=== PATIENT | female | born 1940 | race Caucasian/White ===

== ENCOUNTER 2019-09-12 09:54 | Emergency (ER) | payer MEDICARE, OTHER, SELFPAY ==
--- NOTE | ~2019-09-12 | XR_ITS ---
EXAMINATION: XR hand LT min 3V EXAM DATE: 09/12/2019 11:22 INDICATION: Swollen left hand. TECHNIQUE: Left hand frontal, lateral and oblique projections obtained and reviewed. Correlation is m juan c to left wrist exam 07/01/2010. FINDINGS: Left metacarpal bones are unremarkable. There is moderate polyarticular distal interphalan geal, advanced triscaphe primary osteoarthritis. There are no bony erosions identified. There are no acute fractures or dislocations identified. There is no subcutaneous gas. There are no radiopaque foreign bodies. IMPRESSION: 1. XR hand LT min 3V exam without acute osseous findings. 2. Soft tissue swelling. 3. Osteoarthritis. Reviewed, dictated and finalized at location A.
[2019-09-12 10:02] VITALS: BP 171/86; PULSE 120; RESP 16; TEMP 37.1; O2SAT 98
--- NOTE | 2019-09-12 11:15 | ED.WOUNDLAC ---
HPI - Wound/Laceration General Chief Complaint: Wound/Laceration <Karla Rodriguez PA-C - Last Filed: 09/12/19 13:00> Stated Complaint: hand swelling <DENA Zaragoza Last Filed: 09/12/19 13:00> Time Seen by Provider: 09/12/19 11:00 <DENA Zaragoza Last Filed: 09/12/19 13:00> Source: patient <DENA Zaragoza Last Filed: 09/12/19 13:00> Mode of arrival: ambulatory <DENA Zaragoza Last Filed: 09/12/19 13:00> Limitations: no limitations <DENA Zaragoza Last Filed: 09/12/19 13:00> History of Present Illness HPI narrative: This is a 78 year old female that presents the ER for left hand swelling x2 days. Reports Thursday night they were sitting out on the porch and she started to note some itching to her left hand. Reports on Thursday the hand started to become swollen and red. Reports the pain is continued to itch and is painful. She took Benadryl twice yesterday without relief. Denies fever, drainage, recent travel or surgery, or history of blood clots. <DENA Zaragoza Last Filed: 09/12/19 13:00> Related Data Home Medications: Home Medications Medication Instructions Recorded Confirmed aspirin [Adult Low Dose Aspirin] 09/12/19 atorvastatin 09/12/19 calcium carbonate [Calcium 600] 09/12/19 09/12/19 coQ10 (ubiquinol) PO 09/12/19 ergocalciferol (vitamin D2) 09/12/19 fluticasone propionate INTRANASAL 09/12/19 loratadine mg 09/12/19 meloxicam 09/12/19 [id number]-sud-GM-lycopen-lutein tablet PO 09/12/19 [Complete Senior] telmisartan-hydrochlorothiazid tablet 09/12/19 <DENA Zaragoza Last Filed: 09/12/19 13:00> Allergies/Adverse Reactions: Allergies Allergy/AdvReac Type Severity Reaction Status Date / Time No Known Drug Allergies Allergy Verified 09/12/19 11:15 <Karla Rodriguez PA-C - Last Filed: 09/12/19 13:00> Review of Systems Review of Systems: Narrative: CONSTITUTIONAL: Denies fever SKIN: Reports erythema and edema MUSCULOSKELETAL: Reports myalgia. <Karla Rodriguez PA-C - Last Filed: 09/12/19 13:00> All systems reviewed & are unremarkable except as noted in HPI and below <Karla Rodriguez PA-C - Last Filed: 09/12/19 13:00> PMFSH Past Medical History Medical History: Medical History (Updated 09/12/19 @ 12:51 by Karla Rodriguez PA-C) History of hyperlipidemia History of hypertension <Karal Rodriguez PA-C - Last Filed: 09/12/19 13:00> Exam Narrative: Exam Narrative: GENERAL: Well-appearing, well-nourished, and in no acute distress. HEAD: Normocephalic, atraumatic. EYES: EOMI. CHEST: Clear to auscultation. No respiratory distress. No wheezes rales or rhonchi HEART: Regular rate and rhythm. No murmur heard. Normal peripheral pulses. EXTREMITIES: Normal range of motion. Moderate edema and erythema to the left hand extending into the wrist. Normal range of motion. Normal sensation SKIN: Warm, dry, no rash. NEURO: No focal deficits. Alert and oriented x3. PSYCH: Normal mood and affect <Karla Rodriguez PA-C - Last Filed: 09/12/19 13:00> Course Consultations Consultation #1: Spoke with Dr. Katz on-call for her primary who agrees with work-up and plan. Patient is to follow-up in clinic. <Karla Rodriguez PA-C - Last Filed: 09/12/19 13:00> Date: 09/12/19 <DENA Zaragoza Last Filed: 09/12/19 13:00> Time: 12:48 <Karla Rodriguez PA-C - Last Filed: 09/12/19 13:00> Vital Signs Vital signs: Vital Signs Temperature 98.8 F 09/12/19 10:02 Pulse Rate 120 H 09/12/19 10:02 Respiratory Rate 16 09/12/19 10:02 Blood Pressure 171/86 H 09/12/19 10:02 Pulse Oximetry 98 09/12/19 10:02 Temperature 97.9 F 09/12/19 13:06 Pulse Rate 90 09/12/19 13:06 Respiratory Rate 16 09/12/19 10:02 Blood Pressure 146/81 H 09/12/19 13:06 Pulse Oximetry 98 09/12/19 13:06 <Karla Rodriguez PA-C - Last Filed: 09/12/19 13:00
[2019-09-12] MEDS: FAMOTIDINE 20 MG TABLET PO (11:24)
[2019-09-12] MEDS: methylPREDNISolone ACETATE 40 MG/ML VIAL IM (11:24)
[2019-09-12 11:35] LABS: Basophils Percent Auto 0.2 % (0.2-1.2); Eosinophils Absolute Auto 0.3 K/mm3 (0-0.3); Hematocrit 36.9 % (37.0-47.0); Hemoglobin 12.1 g/dL (12.0-15.0); Immature Granulocyte Absolute 0.01 K/mm3 (0.00-0.031); Immature Granulocyte Percent A 0.1 % (0-0.5); Lymphocytes Absolute Auto 0.95 K/mm3 (0.9-3.2); Lymphocytes Percent Auto 11.5 % (18.3-44.2); Mean Corpuscular HGB Conc 32.8 g/dl (32-36); Mean Corpuscular Hemoglobin 28.9 pg (26-34); Mean Corpuscular Volume 88.3 fl (80-100); Mean Platelet Volume 10.3 fl (7.4-10.4); Monocytes Absolute Auto 0.7 K/mm3 (0.1-0.6); Monocytes Percent Auto 8.3 % (2.6-8.5); Neutrophils Absolute Auto 6.4 K/mm3 (1.3-6.7); Neutrophils Percent Auto 76.9 % (45.5-73.1); Platelet Count Result 307 k/mm3 (150-375); Red Blood Count 4.18 M/mm3 (4.2-5.4); Red Cell Distribution Width 14.1 % (11.5-14.5); White Blood Count 8.3 K/mm3 (4.5-10.0)
[2019-09-12 11:46] LABS: Partial Thromboplastin Time 27.3 SECONDS (22.3-36.8); Prothrombin Time 12.6 Seconds (11.1-14.7)
[2019-09-12 11:49] LABS: D Dimer 0.52 ug/mL (<0.48)
[2019-09-12 11:50] LABS: Blood Urea Nitrogen 15 mg/dL (7-17); CRP < 0.5 mg/dL (<1.0); Calcium 9.3 mg/dL (8.4-10.2); Carbon Dioxide 27 mmol/L (22-30); Chloride 99 mmol/L (98-107); Estimated Glomerular Filt Rate > 60; Glucose 103 mg/dL (65-105); Sodium 133 mmol/L (137-145)
[2019-09-12 12:14] LABS: Erythrocyte Sedimentation Rate 25 mm/hr (0-20)
[2019-09-12 13:06] VITALS: BP 146/81; PULSE 90; TEMP 36.6; O2SAT 98
== END 2019-09-12 13:20 | disposition home or self-care (01) ==
PROVIDERS: Physician Assistant; Emergency Provider General Practice; PCP Nurse Practitioner Adult Health
DX: L03.114 Cellulitis of left upper limb (principal); T78.40XA Allergy, unspecified, initial encounter; E78.5 Hyperlipidemia, unspecified; I10 Essential (primary) hypertension; M19.042 Primary osteoarthritis, left hand
CPT/HCPCS: 36415; 73130; 80048; 85025; 85380; 85610; 85652; 85730; 86140; 96372; 99283; A9270; J1030

== ENCOUNTER 2019-09-13 08:06 | Outpatient (CLI) | payer MEDICARE, OTHER, SELFPAY ==
--- NOTE | ~2019-09-13 | US_ITS ---
EXAMINATION: US venous doppler UE LT DATE: 09/13/2019 09:08 INDICATION: Left hand swelling TECHNIQUE: Paez scale images with and without compression and Doppler images of the left upper extrem ity veins were obtained. COMPARISON: None. FINDINGS: The left internal jugular vein, subclavian vein, axillary vein, brachial veins, basilic vein, cephali c vein, radial vein, and ulnar vein are patent.] IMPRESSION: 1. Patent left upper extremity veins. No evidence of deep venous thrombosis. Reviewed, dictated and finalized at location A.
== END 2019-09-13 08:07 | disposition home or self-care (01) ==
PROVIDERS: PCP Nurse Practitioner Adult Health; Visit Provider Nurse Practitioner Adult Health
DX: M79.89 Other specified soft tissue disorders (principal)
CPT/HCPCS: 93971

== ENCOUNTER 2020-05-02 13:05 | Outpatient (CLI) | payer MEDICARE, OTHER, SELFPAY ==
--- NOTE | ~2020-05-02 | MM_ITS ---
EXAMINATION: MM screening maria guadalupe BI w yassine HISTORY: Screening TECHNIQUE: Craniocaudal and mediolateral oblique 3-D tomosynthesis images were obtained and synthetic 2-D images were generated. CAD analysis was submitted and interpreted. COMPARISON: Comparison to multiple prior studies sequentially, with oldest reviewed study dated 02/18. BREAST PARENCHYMAL COMPOSITION: There are scattered areas of fibroglandular density. FINDINGS: There is no evidence of suspicious mass, calcification, or architectural distortion to sugg est malignancy in either breast. There has been no suspicious interval change. IMPRESSION: 1. No mammographic evidence of malignancy. 2. Recommend routine screening mammography in one year. BI-RADS Category 1: Negative Reviewed, dictated and finalized at location D. T ACCOUNTANT
== END 2020-05-02 13:06 | disposition home or self-care (01) ==
LOC: ANHIMG 13:08
PROVIDERS: PCP Nurse Practitioner Adult Health; Visit Provider Nurse Practitioner Adult Health
DX: Z12.31 Encounter for screening mammogram for malignant neoplasm of breast (principal)
CPT/HCPCS: 77063; 77067

== ENCOUNTER 2020-12-06 12:55 | Outpatient (CLI) | payer MEDICARE, OTHER, SELFPAY ==
--- NOTE | ~2020-12-06 | DEXA_ITS ---
Bone Density Report Name: Lottie Peres Age: 80 Sex: Female Ethnicity: White Date of : 1940 Indication: osteopenia; monitoring treatment; height loss; cancer; postmenopausal Referring Provider: BEN, KEYON Study: Bone densitometry was performed. Exam Date: December 06, 2020 Accession number: [id number] Bone Density: Region BMD T-score Z-score Classification AP Spine (L1-L4) 0.861 -1.7 1.0 Osteopenia Femoral Neck (Left) 0.621 -2.1 0.2 Osteopenia Total Hip (Left) 0.781 -1.3 0.7 Osteopenia Total Hip Bilateral Avg 0.792 -1.2 0.8 Osteopenia Femoral Neck (Right) 0.651 -1.8 0.5 Osteopenia Total Hip (Right) 0.802 -1.1 0.9 Osteopenia World Health Organization criteria for BMD impression classify patients as: Normal (T-score at or above -1.0), Osteopenia (T-score between -1.0 and -2.5), or Osteoporosis (T-score at or below -2.5). 10-year Fracture Risk: FRAX not reported because: Treated for osteoporosis Previous Exams: Region Exam Age BMD T-score BMD Change BMD Change Date g/cm2 vs Baseline vs Previous AP Spine(L1-L4) 12/06/2020 80 0.861 -1.7 -0.081(-8.6%)# 0.044(5.4%)* 08/27/2018 77 0.817 -2.1 -0.125(-13.3%) -0.001(-0.1%) 03/10/2016 75 0.818 -2.1 -0.124(-13.2%) -0.124(-13.2%) 08/27/2001 60 0.942 -1.0 Total Hip(Left) 12/06/2020 80 0.781 -1.3 -0.126(-13.8%) 0.099(14.5%)* 08/27/2018 77 0.682 -2.1 -0.225(-24.8%) -0.127(-15.7%) 03/10/2016 75 0.809 -1.1 -0.097(-10.7%) -0.097(-10.7%) 08/27/2001 60 0.906 -0.3 Total Hip(Right) 12/06/2020 80 0.802 -1.1 -0.176(-18.0%) 0.045(5.9%)* 08/27/2018 77 0.758 -1.5 -0.220(-22.5%) -0.060(-7.3%)* 03/10/2016 75 0.817 -1.0 -0.161(-16.4%) -0.161(-16.4%) 08/27/2001 60 0.978 0.3 *Denotes significance at 95% confidence level, LSC for AP Spine = 0.022 g/cm2, LSC for Total Hip = 0.027 g/cm2 Clinical Information Provided by Patient: Is being treated for osteoporosis Has used the following medications: Boniva (i.e. ibandronate), Fosamax (i.e. alendronate), Vitamin D, Calcium Has the following medical conditions: Cancer Patient maximum height was 60 Menopause Age: 58 No regular weight bearing exercise Drinks caffeinated beverages Onset of menses at age 13 Number of children 3 Impression: The patient has low bone mass, based on the Left Femoral Neck T-score. No significant bone loss was observed. Discussion: PATIENT UNDER TREATMENT WITH NO SIGNIFICANT B
== END 2020-12-06 12:56 | disposition home or self-care (01) ==
LOC: ANHIMG 12:59
PROVIDERS: PCP Nurse Practitioner Adult Health; Visit Provider Nurse Practitioner Adult Health
DX: Z78.0 Asymptomatic menopausal state (principal); M85.88 Other specified disorders of bone density and structure, other site; M85.852 Other specified disorders of bone density and structure, left thigh; M85.851 Other specified disorders of bone density and structure, right thigh
CPT/HCPCS: 77080

== ENCOUNTER 2021-05-09 08:33 | Emergency (ER) | payer MEDICARE, OTHER, SELFPAY ==
[2021-05-09 08:32] VITALS: PULSE 0
--- NOTE | 2021-05-09 08:40 | ED.CPR ---
HPI - CPR General Chief Complaint: Cardiac Arrest/CPR Stated Complaint: Cardiac Arrest Time Seen by Provider: 05/09/21 08:38 Source: EMS and RN notes reviewed Mode of arrival: EMS Limitations: clinical condition History of Present Illness HPI narrative: 80-year-old female presented to the emergency department by EMS in full arrest. Patient had a hysterectomy a few days ago and has been doing fine. states that today she began complaining of increased shortness of breath, emesis of the patient to the bathroom and then back to the bed. states that the patient wanted to lay down and he was worried that she would fall from the bed so he had her lay on the ground he states that she then became unresponsive. Upon arrival to the scene by EMS patient was pulseless and in PEA. Patient was having agonal breathing. At 750 CPR was started. EMS did give approximately 6 rounds of epi with no rhythm change or ROSC. Upon arrival to the emergency room 2 additional rounds of epi were given. Patient had a pulse while on the Stanley but was pulseless during rhythm checks. After the second round of epi given in the emergency department and additional rhythm check was done and patient was still pulseless. Bedside ultrasound showed no cardiac activity. After 45 minutes of CPR and 8 rounds of epi patient was still pulseless in PEA with no cardiac activity visualized by ultrasound. Time of was called at 835. Patient had a hysterectomy approximately 2 days ago due to uterine prolapse. Related Data Home Medications Medication Instructions Recorded Confirmed aspirin [Adult Low Dose Aspirin] 09/12/19 atorvastatin 09/12/19 calcium carbonate [Calcium 600] 09/12/19 09/12/19 coQ10 (ubiquinol) PO 09/12/19 ergocalciferol (vitamin D2) 09/12/19 fluticasone propionate INTRANASAL 09/12/19 loratadine mg 09/12/19 meloxicam 09/12/19 nsatmxvw-tel-WI-lycopen-lutein tablet PO 09/12/19 [Complete Senior] telmisartan-hydrochlorothiazid tablet 09/12/19 Allergies Allergy/AdvReac Type Severity Reaction Status Date / Time No Known Drug Allergies Allergy Verified 09/12/19 11:15 Review of Systems Review of Systems: ROS unobtainable: Yes unobtainable due to endotracheal tube and unobtainable due to medical condition PMFSH Past Medical History Medical History (Updated 05/09/21 @ 08:46 by Hayden Grossman MD) History of hyperlipidemia History of hypertension Exam Const: Other: Intubated with CPR in progress HENMT: Other: ET tube in place Eyes: Other: Pupils fixed and dilated Neck: Neck: normal visual inspection Chest: Other: Stanley device in place Resp: Other: Breath sounds with bagging Cardio: Other: PEA GI: Other: Soft nondistended abdomen. Normal-appearing trocar sites from recent surgery Neuro: Other: Unresponsive Course Course Emergency Course: ED course was described in the HPI section Vital Signs Vital signs: Vital Signs Pulse Rate 0 L 05/09/21 08:32 Pulse Rate 0 L 05/09/21 08:32 Discharge Plan Discharge Clinical Impression: Cardiac arrest Patient Disposition: Condition: Prescriptions: No Action atorvastatin 40 mg tablet RF: 0 meloxicam 15 mg tablet RF: 0 calcium carbonate [Calcium 600] 600 mg calcium (1,500 mg) tablet RF: 0 telmisartan-hydrochlorothiazid 80-12.5 mg tablet RF: 0 ergocalciferol (vitamin D2) 1,250 mcg (50,000 unit) capsule RF: 0 fluticasone propionate 50 mcg/actuation spray,suspension INTRANASAL RF: 0 loratadine 10 mg tablet RF: 0 aspirin [Adult Low Dose Aspirin] 81 mg Tablet,Delayed Release (Dr/Ec) RF: 0 Complete Senior 0.4-300-250 mg-mcg-mcg Tablet PO RF: 0 coQ10 (ubiquinol) 200 mg Capsule PO RF: 0 cephalexin 500 mg capsule 500 mg PO Q6H 7 Days Qty: 28 RF: 0 methylprednisolone [Medrol (Sriram)] 4 mg tablets,dose pack
--- NOTE | 2021-05-09 09:04 | PC.NURSE ---
Time of [id number].
--- NOTE | 2021-05-09 09:05 | PC.NURSE ---
contacted [facility] and spoke w/ Hayden Mcnair. He states pt is not a [facility] case.
--- NOTE | 2021-05-09 09:20 | PC.NURSE ---
coleman Evans at [facility] and pt is an eligible donor. reference number is [id number].
--- NOTE | 2021-05-09 10:00 | PC.NURSE ---
Igel, monitor stickers, and IO access removed from the patient.
--- NOTE | 2021-05-09 10:45 | PC.NURSE ---
pt taken to the [facility] at 1045.
--- NOTE | 2021-05-09 16:37 | PC.NURSE ---
Mr. Peres called, stated he wanted [facility] to handle arrangements. I called [facility]; [facility] staff stated they would clarify with [facility] and pick body up if needed.
== END 2021-05-09 10:45 | disposition expired ==
LOC: ANHED 09:01
PROVIDERS: Emergency Provider Emergency Medicine; PCP Nurse Practitioner Adult Health
DX: I46.9 Cardiac arrest, cause unspecified (principal); E78.5 Hyperlipidemia, unspecified; I10 Essential (primary) hypertension; Z98.890 Other specified postprocedural states; Z79.82 Long term (current) use of aspirin
CPT/HCPCS: 92950; 99285